=== PATIENT | female | born 1960 | race Caucasian/White ===

== ENCOUNTER 2016-06-04 21:18 | Emergency (ER) | payer OTHER ==
[2016-06-04] MEDS ORDERED: OXYMETAZOLINE HCL 0.05% 30 SPRAYS/BOT NS ONE (22:55)
[2016-06-05] MEDS ORDERED: PROPARACAINE HCL 0.5% 300 GTTS/BOT SOLN.DROP ONE (00:38)
== END 2016-06-05 01:12 | disposition home or self-care (01) ==
LOC: ED 21:18
DX: R04.0 Epistaxis (principal); I10 Essential (primary) hypertension; E06.3 Autoimmune thyroiditis
CPT/HCPCS: 99282; 30901 ×2; 99283; A9270 ×2